=== PATIENT | female | born 2000 | race Caucasian/White ===

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

== ENCOUNTER 2020-12-13 17:50 | Emergency (ER) | payer OTHER ==
[~2020-12-13] VITALS: Ht 170.2 cm; Wt 81.2 kg
[~2020-12-13 17:50] MED LIST: IBUP-2213 PO
[2020-12-13 18:06] VITALS: BP 142/71
--- NOTE | 2020-12-13 18:20 | NUR ---
20 Y/O FEMALE PRESENTS WITH MILD VAGINAL BLEEDING X YESTERDAY ACCOMPANIED BY PELVIC CRAMPING 2/10 DULL CRAMPING. PATIENT IS 8 WEEKS AT THIS TIME. PATIENT STATES BLEEDING WAS BRIGHT RED, BUT NOT ENOUGH TO SOAK UP A PAD. NO CLOTS NOTED AT THIS TIME. BLEEDING HAS OCCURED BEFORE, LAST EPISODE WAS NOV 29. DENIES ANY N/V OR LIGHTHEADEDNESS. NO PMH NKDA
--- NOTE | 2020-12-13 18:44 | NUR ---
ULTRASOUND AT BEDSIDE
[2020-12-13 18:57] LABS: HEMOGLOBIN 12.5 g/dL (12.0-16.0)
[2020-12-13 19:01] LABS: BASOPHILS % (AUTO) 0.2 % (0.0-2.0); EOSINOPHILS # (AUTO) 0.2 K/uL (0-0.4); EOSINOPHILS % (AUTO) 2.2 % (0.0-4.0); HEMATOCRIT 37.9 % (36-48); LYMPHOCYTES # (AUTO) 2.7 K/uL (2.5-16.5); MEAN CORPUSCULAR HEMOGLOBIN 29 pg (27-31); MEAN CORPUSCULAR HGB CONC 33 g/dL (33-37); MEAN CORPUSCULAR VOLUME 86.6 fL (80-94); MONOCYTES # (AUTO) 0.5 K/uL (0.8-1.0); MONOCYTES % (AUTO) 6.6 % (1.7-9.3); NEUTROPHILS # (AUTO) 4.1 K/uL (1.8-7.7); PLATELET COUNT (AUTO) 263 K/uL (140-450); RED BLOOD CELL COUNT(AUTO) 4.37 MIL/uL (4.20-5.40); RED CELL DISTRIBUTION WIDTH 13.9 % (11.6-13.7); WHITE BLOOD COUNT (AUTO) 7.4 K/uL (4.8-10.8)
[2020-12-13 19:08] LABS: ANION GAP 12.5 (8-16); CARBON DIOXIDE 27.2 mmol/L (21-32); CREATININE 0.7 mg/dL (0.6-1.3); POTASSIUM 3.7 mmol/L (3.5-5.1)
--- NOTE | 2020-12-13 19:14 | NUR ---
REPORT RECEIVED FROM MONICA BOWMAN FOR CONTINUITY OF CARE
[2020-12-13 20:29] VITALS: BP 101/44
--- NOTE | 2020-12-13 20:30 | NUR ---
Patient discharged with v/s stable. Written and verbal after care instructions given and explained. Patient verbalized understanding. Ambulatory with steady gait. All questions addressed prior to discharge. Advised to follow up with PMD.
[2020-12-14] MEDS ORDERED: ACET-2619 PO (18:16)
== END 2020-12-13 20:30 | disposition home or self-care (01) ==
LOC: MED 17:50
DX: O20.0 Threatened abortion (principal); Z3A.01 Less than 8 weeks gestation of pregnancy; Z79.899 Other long term (current) drug therapy
CPT/HCPCS: 36415; 76817; 80048; 81002; 81025; 84702; 85025; 86886; 86900; 86901; 99284

== ENCOUNTER 2020-12-14 15:45 | Emergency (ER) | payer OTHER ==
[~2020-12-14] VITALS: Ht 157.5 cm; Wt 92.1 kg
[2020-12-14 15:48] VITALS: BP 125/50
--- NOTE | 2020-12-14 15:58 | NUR ---
20 Y/O FEMALE STATES SHE IS 8 WEEKS , AND IS HAVING VAGINAL BLEEDING, SOAKING UP ABOUT 1 PAD PER HOUR. DENIES ANY LIGHTHEADEDNESS. MILD PELVIC CRAMPING NOTED AT THIS TIME. NO PMH NKDA
[2020-12-14] MEDS ORDERED: ACETAMINOPHEN EXTRA STRENGTH 500 MG TAB PO ONE (16:00)
--- NOTE | 2020-12-14 16:14 | NUR ---
PT NOT ABLE TO URINATE AT THIS TIME
[2020-12-14 16:18] LABS: BASOPHILS % (AUTO) 0.4 % (0.0-2.0); EOSINOPHILS # (AUTO) 0.1 K/uL (0-0.4); HEMATOCRIT 36.5 % (36-48); HEMOGLOBIN 12.3 g/dL (12.0-16.0); LYMPHOCYTES # (AUTO) 2.4 K/uL (2.5-16.5); LYMPHOCYTES % (AUTO) 32.4 % (20.5-51.1); MEAN CORPUSCULAR HEMOGLOBIN 29 pg (27-31); MEAN CORPUSCULAR HGB CONC 34 g/dL (33-37); MEAN CORPUSCULAR VOLUME 85.8 fL (80-94); MONOCYTES # (AUTO) 0.5 K/uL (0.8-1.0); MONOCYTES % (AUTO) 6.4 % (1.7-9.3); NEUTROPHILS # (AUTO) 4.3 K/uL (1.8-7.7); NEUTROPHILS % (AUTO) 58.8 % (42.2-75.2); PLATELET COUNT (AUTO) 258 K/uL (140-450); RED BLOOD CELL COUNT(AUTO) 4.25 MIL/uL (4.20-5.40); RED CELL DISTRIBUTION WIDTH 13.9 % (11.6-13.7); WHITE BLOOD COUNT (AUTO) 7.4 K/uL (4.8-10.8)
--- NOTE | 2020-12-14 16:37 | NUR ---
PELVIC EXAM PERFORMED WITH PA
--- NOTE | 2020-12-14 16:45 | NUR ---
ULTRASOUND AT BEDSIDE
[2020-12-14] MEDS ORDERED: ACET-2619 PO (18:16)
[2020-12-14 18:26] VITALS: BP 127/48
== END 2020-12-14 18:26 | disposition home or self-care (01) ==
LOC: MED 15:45
DX: O03.9 Complete or unspecified spontaneous abortion without complication (principal); Z79.899 Other long term (current) drug therapy
CPT/HCPCS: 36415; 76817; 81002; 81025; 84702; 85025; 99284

== ENCOUNTER 2022-12-16 09:53 | Emergency (ER) | payer OTHER ==
[~2022-12-16] VITALS: Ht 160 cm; Wt 101.2 kg
[~2022-12-16 09:53] MED LIST changes: +ACET-2619 PO
[2022-12-16 10:10] VITALS: BP 126/64
--- NOTE | 2022-12-16 10:52 | NUR ---
TAKEN TO US VIA WC
[2022-12-16 11:30] LABS: APPEARANCE,URINE CLEAR (CLEAR); BILIRUBIN,URINE NEGATIVE (NEGATIVE); BLOOD, URINE 3+ (NEGATIVE); COLOR,URINE YELLOW (YELLOW); LEUKOCYTE ESTERASE ,URINE NEGATIVE (NEGATIVE); NITRITE, URINE NEGATIVE (NEGATIVE); UGLUCOSE NEGATIVE (NEGATIVE)
[2022-12-16 11:44] LABS: RBC,URINE 0-5 /HPF (0-5); WBC,URINE 0-5 /HPF (0-5)
[2022-12-16 12:05] LABS: BASOPHILS % (AUTO) 0.4 % (0.0-2.0); EOSINOPHILS # (AUTO) 0.1 K/uL (0-0.4); EOSINOPHILS % (AUTO) 1.7 % (0.0-4.0); HEMATOCRIT 37.7 % (36-48); HEMOGLOBIN 12.5 g/dL (12.0-16.0); LYMPHOCYTES # (AUTO) 1.7 K/uL (2.5-16.5); LYMPHOCYTES % (AUTO) 34.3 % (20.5-51.1); MEAN CORPUSCULAR HEMOGLOBIN 28 pg (27-31); MEAN CORPUSCULAR HGB CONC 33 g/dL (33-37); MEAN CORPUSCULAR VOLUME 83.9 fL (80-94); MONOCYTES # (AUTO) 0.4 K/uL (0.8-1.0); MONOCYTES % (AUTO) 8.9 % (1.7-9.3); NEUTROPHILS # (AUTO) 2.7 K/uL (1.8-7.7); NEUTROPHILS % (AUTO) 54.7 % (42.2-75.2); PLATELET COUNT (AUTO) 301 K/uL (140-450); RED BLOOD CELL COUNT(AUTO) 4.49 MIL/uL (4.20-5.40); RED CELL DISTRIBUTION WIDTH 14.4 % (11.6-13.7); WHITE BLOOD COUNT (AUTO) 4.9 K/uL (4.8-10.8)
[2022-12-16 16:39] VITALS: BP 126/64
--- NOTE | 2022-12-16 16:39 | NUR ---
Patient discharged with v/s stable. Written and verbal after care instructions given and explained. Patient verbalized understanding. Ambulatory with steady gait. All questions addressed prior to discharge. Advised to follow up with PMD/OB.
== END 2022-12-16 16:39 | disposition home or self-care (01) ==
LOC: MED 09:53
DX: O03.9 Complete or unspecified spontaneous abortion without complication (principal); Z79.899 Other long term (current) drug therapy
CPT/HCPCS: 36415; 76817; 81001; 81025; 84702; 85025; 99284

== ENCOUNTER 2023-05-11 21:57 | Emergency (ER) | payer OTHER ==
[~2023-05-11] VITALS: Ht 160 cm; Wt 103.4 kg
[2023-05-11 22:17] VITALS: BP 120/66; PULSE 73; RESP 18; TEMP 97.6; O2SAT 100
--- NOTE | 2023-05-11 22:26 | NUR ---
PT AMBULATED TO ER BED 9
--- NOTE | 2023-05-11 22:28 | NUR ---
23 yo/f presents to ED w c/o LUQ pain starting today intermient 12/13 non-rad. denies fevers, chills, v/d, or urinary problems. pt reports nausea but reports it has been ongoing since begining of . pt 6 weeks and take prenatals, and aspirin, + 2 other medications she does not recall name. pmh: denies allergies: denies
[2023-05-11 22:45] LABS: BASOPHILS % (AUTO) 0.5 % (0.0-2.0); EOSINOPHILS # (AUTO) 0.1 K/uL (0-0.4); EOSINOPHILS % (AUTO) 1.1 % (0.0-4.0); HEMATOCRIT 35.6 % (36-48); LYMPHOCYTES % (AUTO) 31.7 % (20.5-51.1); MEAN CORPUSCULAR HEMOGLOBIN 28 pg (27-31); MEAN CORPUSCULAR HGB CONC 34 g/dL (33-37); MEAN CORPUSCULAR VOLUME 83.6 fL (80-94); MONOCYTES # (AUTO) 0.5 K/uL (0.8-1.0); MONOCYTES % (AUTO) 5.7 % (1.7-9.3); NEUTROPHILS # (AUTO) 5.8 K/uL (1.8-7.7); PLATELET COUNT (AUTO) 272 K/uL (140-450); RED BLOOD CELL COUNT(AUTO) 4.26 MIL/uL (4.20-5.40); RED CELL DISTRIBUTION WIDTH 15.1 % (11.6-13.7); WHITE BLOOD COUNT (AUTO) 9.5 K/uL (4.8-10.8)
[2023-05-11 22:51] LABS: APPEARANCE,URINE CLEAR (CLEAR); BILIRUBIN,URINE NEGATIVE (NEGATIVE); BLOOD, URINE TRACE-I (NEGATIVE); COLOR,URINE YELLOW (YELLOW); LEUKOCYTE ESTERASE ,URINE 2+ (NEGATIVE); NITRITE, URINE NEGATIVE (NEGATIVE); UGLUCOSE NEGATIVE (NEGATIVE)
[2023-05-11 22:59] LABS: ALBUMIN 3.5 g/dL (3.4-5.0); ANION GAP 13.1 (8-16); CARBON DIOXIDE 25.6 mmol/L (21-32); CREATININE 0.6 mg/dL (0.6-1.3); POTASSIUM 3.7 mmol/L (3.5-5.1); TOTAL BILIRUBIN 0.3 mg/dL (0.0-1.0)
--- NOTE | 2023-05-12 00:23 | NUR ---
Ultrasound at bedside.
[2023-05-12 01:21] VITALS: TEMP 97.6
[2023-05-12 03:30] VITALS: BP 105/55; PULSE 72; RESP 16; O2SAT 100
[2023-05-12] MEDS ORDERED: CEPH-588 PO (03:38)
--- NOTE | 2023-05-12 04:00 | NUR ---
pt left w/o discharge paperwork/ instructions, per fátima lundberg he had spoken with pt about d/c.
== END 2023-05-12 04:00 | disposition home or self-care (01) ==
LOC: MED 21:57
DX: R10.12 Left upper quadrant pain (principal); Z79.899 Other long term (current) drug therapy
CPT/HCPCS: 36415; 76817; 80053; 81001; 81025; 83690; 84702; 85025; 87086; 99284; Q0092